=== PATIENT | male | born 2000 | race African-American/Black ===

== ENCOUNTER 2019-11-13 18:38 | Emergency (ER) | payer OTHER | END 2019-11-13 19:50 | disposition home or self-care (01) | LOC: ERS 18:38 | DX: U07.1 COVID-19 (principal) | CPT/HCPCS: 87635; 99283; U0003 ==

== ENCOUNTER 2019-11-24 11:39 | Emergency (ER) | payer OTHER ==
[2019-11-25 15:35] LABS: SARS-CoV-2 MS2 Positive; SARS-CoV-2 N Gene Negative; SARS-CoV-2 S Gene Negative; SARS-CoV-2 orf1ab Negative
== END 2019-11-24 12:37 | disposition home or self-care (01) ==
LOC: ERS 11:39
DX: Z20.828 Contact with and (suspected) exposure to other viral communicable diseases (principal)
CPT/HCPCS: 87635; 99283; U0003

== ENCOUNTER 2019-12-24 13:09 | Emergency (ER) | payer OTHER ==
[2019-12-25 14:02] LABS: SARS-CoV-2 MS2 Positive; SARS-CoV-2 N Gene Negative; SARS-CoV-2 S Gene Negative; SARS-CoV-2 by NAA Not Detected (NotDetected); SARS-CoV-2 orf1ab Negative
== END 2019-12-24 13:49 | disposition home or self-care (01) ==
LOC: ERS 13:09
DX: Z20.828 Contact with and (suspected) exposure to other viral communicable diseases (principal)
CPT/HCPCS: 87635; 99283; U0003